=== PATIENT | male | born 1985 | race Caucasian/White ===

== ENCOUNTER 2017-05-10 15:34 | Emergency (ER) | payer SELFPAY ==
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
[2017-05-10 20:12] VITALS: BP 124/79
== END 2017-05-10 20:11 | disposition home or self-care (01) ==
LOC: ED 15:34
DX: M79.672 Pain in left foot (principal); F17.210 Nicotine dependence, cigarettes, uncomplicated
CPT/HCPCS: 36415; 85379; 99282